=== PATIENT | female | born 1995 | race Caucasian/White ===

== ENCOUNTER 2016-10-24 14:25 | Emergency (ER) | payer OTHER ==
[~2016-10-24] VITALS: Ht 157.5 cm; Wt 45.8 kg
[~2016-10-24 14:25] MED LIST: NEPHRO-VITE VITA1 EA PO
[2016-10-24 16:28] VITALS: BP 109/65
== END 2016-10-24 18:35 | disposition home or self-care (01) ==
LOC: ED 14:25
DX: J02.9 Acute pharyngitis, unspecified (principal); H66.91 Otitis media, unspecified, right ear
CPT/HCPCS: J0690

== ENCOUNTER 2018-04-09 17:27 | Emergency (ER) | payer OTHER ==
[~2018-04-09] VITALS: Ht 157.5 cm; Wt 52.6 kg
[2018-04-09 17:37] VITALS: Ht 157.5 cm; Wt 52.6 kg
[2018-04-09 19:48] VITALS: BP 112/64
== END 2018-04-09 19:48 | disposition home or self-care (01) ==
LOC: ED 17:27
DX: R51 Headache (principal)
CPT/HCPCS: J1885